=== PATIENT | male | born 1995 | race African-American/Black ===

== ENCOUNTER 2019-11-07 18:04 | Emergency (ER) | payer SELFPAY ==
[~2019-11-07] VITALS: Ht 175.3 cm; Wt 77.1 kg
--- OUTSIDE RECORDS SUMMARY | 2019-11-07 20:21 | XMS REPORT | Clinical Summary ---
Author Author ARMANDO [facility] Address Unknown Phone Unavailable Care Team Providers Care Butcher Name Role Phone Pcp, No PCP Unavailable Allergies Comments Active Allergy Reactions Severity Noted Date Penicillins Swelling 05/21/2019 Medications End Date Status Medication Sig Dispensed Refills Start Date 06/08/2019 Discontinued gemifloxacin (FACTIVE) Take 1 tablet 10 tablet 0 0 320 mg tablet (320 mg 0 total) by mouth daily for 10 days. 06/15/2019 sulfamethoxazole-trimetho Take 1 tablet 14 tablet 0 prim (BACTRIM DS) 800-160 (160 mg of 0 mg per tablet trimethoprim total) by mouth 2 (two) times daily for 7 days smx-tmp DS (BACTRIM) 800-160 mg tabs (1tab q12 D10). 06/09/2019 gemifloxacin (FACTIVE) Take 1 tablet 1 tablet 0 0 320 mg tablet (320 mg 0 total) by mouth daily for 1 day. Active Problems Not on file Encounters Care Team Description Date Type Specialty Prakash, Will III, DO Urethritis (Primary Dx); Dysuria; Penile discharge; Possible exposure to STD 10/29/2019 Emergency Emergency Medicine 10/29/2019 Travel Dot Springer MD Dysuria (Primary Dx); Penile discharge; History of UTI; Urinary frequency 06/07/2019 Emergency Emergency Medicine - 06/08/2019 06/07/2019 Travel Devon Kapoor MD Forearm laceration, left, subsequent enc ounter (Primary Dx) 06/02/2019 Emergency Emergency Medicine 06/02/2019 Travel Prakash, Will III, DO Laceration of left forearm, initial enco unter (Primary Dx); Arm pain, left 05/21/2019 Emergency Emergency Medicine - 05/22/2019 05/21/2019 Travel after 11/06/2018 Social History Date Tobacco Use Types Packs/Day Years Used Never Smoker Smokeless Tobacco: Never Used Alcohol Use Drinks/Week oz/Week Comments No Alcohol Habits Answer Date Recorded How often do you have a drink containing alcohol? Never 05/21/2019 How many drinks containing alcohol do you have on No t asked a typical day when you are drinking? How often do you have six or more drinks on one Not asked occasion? Sex Assigned at Date Recorded Not on file Industry Job Start Date Occupation Not on file Not on file Not on file Travel End Travel History Travel Start 06/07/2019 [facility] 05/07/2019 Last Filed Vital Signs Time Taken Vital Sign Reading 10/29/2019 10:58 PM CDT Blood Pressure 140/62 10/29/2019 10:58 PM CDT Pulse 82 10/29/2019 10:58 PM CDT Temperature 36.7 C (98 F) 10/29/2019 10:58 PM CDT Respiratory Rate 18 10/29/2019 10:58 PM CDT Oxygen Saturation 96% - Inhaled Oxygen - Concentration 06/07/2019 11:25 PM CDT Weight 79.4 kg (175 lb) 06/07/2019 11:25 PM CDT Height 175.3 cm (5' 9") 06/07/2019 11:25 PM CDT Body Mass Index 25.84 Plan of Treatment Not on file Procedures Comments Procedure Name Priority Date/Time Associated Diag nosis STD PANEL - CT/GC RNA STAT 10/29/2019 11:10 PM CDT STD PANEL - CT/GC RNA STAT 06/07/2019 11:48 PM CDT URINALYSIS W/ REFLEX STAT 06/07/2019 URINE CULTURE 11:47 PM CDT URINE CULTURE STAT 06/07/2019 11:47 PM CDT DC LAYR CLOS WND Routine 05/22/2019 TRUNK,ARM,LEG 2.6-7.5 CM 12:35 AM CDT after 11/06/2018 Results * STD Panel - CT/GC RNA (10/29/2019 11:10 PM CDT) Only the most recent of 2 results within the time period is included. C. trachomatis RNA, TMA DETECTED (A) [employer] Comment: INCORPORATED If results do not correlate with clinical findings, testing using an alternate molecular target which amplifies different genetic sequences can be performed on the same sample for result confirmation when requested within 7 days of sample receipt or per performing laboratory specimen retention policy. Alternate target testing is available; 55202 (C. trachomatis) [place] [address]578 (N. gonorrhoeae). N. gonorrhoeae RNA, TMA DETECTED (A) [facility] [employer] [facility] Comment: INCORPORATED If results do not correlate with clinical findings, testing using an alternate molecular target which amplifies different genetic sequences can be performed on the same sample for result confirmation when requested within 7 days of sample receipt or per performing laboratory specimen retention policy. Alternate target testing is available; 98469 (C. trachomatis) [place] [address]291 (N. gonorrhoeae). REFERENCE RANGE:NOT DETECTED Methodology: Gi Physician Mediated Amplification (TMA) to detect RNA. The analytical performance characteristics of this assay, when used to test SurePath(TM) specimens have been determined by [facility]. The modifications have not been cleared or approved by the FDA. This assay has been validated pursuant to the CLIA regulations and is used for clinical purposes. For additional information, please refer to https://education.The Smart Baker/faq/LNE738 (This link is being provided for informational/ educational purposes only.) Specimen Urine Narrative Performed At Performing Lab [facility] *[facility] [address] [place] [address] Josh Babin MD Performing Organization Address City/State/Zipcode Ph one Number [facility], [address] [place], [place] INCORPORATED On License Of [facility] [address] * Urinalysis w/Microscopic + Reflex to Culture (06/07/2019 11:47 PM CDT) Color, UA Yellow [facility], [facility] Clarity, UA Clear [facility], [facility] Specific [place], UA 1.020 1.001 - 1.035 [facility] pH, UA 6.5 5.0 - 8.0 [facility] Protein, UA Trace (A) Negative [facility] Glucose, UA Negative Negative [facility], [facility] Ketones, UA Trace (A) Negative [facility], [facility], [facility] Bilirubin, UA Negative Negative [facility], [facility], [facility] Blood, UA Negative Negative [facility], [facility] Nitrite, UA Negative Negative [facility], [facility] Leukocytes, UA Moderate (A) Negative [facility] Urobilinogen, UA 2.0 (H) 0.2 - 1.0 mg/dL [facility], [facility], [facility] Bacteria, UA Few [facility] Mucus Few [facility], [facility] RBC, UA <5 /HPF [facility] WBC, UA 20-50 /HPF [facility] SQUAMOUS EPITHELIAL <5 /HPF [facility], [facility] Specimen Source [facility], [facility], [facility] Specimen Urine Performing Organization Address City/State/Zipcode Ph one Number [facility] [address] [place] [address] [phone] [facility] * Urine culture (06/07/2019 11:47 PM CDT) Result See comment [facility] Specimen Urine Narrative Performed At 30-39,000 col/mL skin jonathan [facility] Performing Organization Address City/State/Zipcode Ph one Number [facility] [address] [place], [place] [address] [facility] * Lac Repair (05/22/2019 12:35 AM CDT) Narrative Performed At Deno Randall III, DO 05/22/2019 7:06 AM Lac Repair Date/Time: 05/22/2019 6:56 AM Performed by: Deon Randall III, DO Authorized by: Deon Randall III, DO Consent: Verbal consent obtained. Risks and benefits: risks, benefits and alternatives were discussed Site marked: the operative site was vera boo Patient identity confirmed: verbally wi th patient and arm band Time out: Immediately prior to procedur e a "time out" was called to verify the correct patient, procedure, equipme nt, sales support administrator and site/side marked as required. Body area: upper extremity Location details: left lower arm Laceration length: 4 cm Foreign bodies: no foreign bodies Tendon involvement: none Nerve involvement: none Vascular damage: no Anesthesia: local infiltration Anesthesia: Local Anesthetic: bupivacaine 0.25% wit hout epinephrine Anesthetic total: 7 mL Sedation: Patient sedated: no Preparation: Patient was prepped and dr humaed in the usual sterile fashion. Irrigation solution: saline Irrigation method: jet lavage Amount of cleaning: extensive Skin closure: 5-0 Prolene Technique: simple Approximation: close Approximation difficulty: simple Dressinx4 sterile gauze and antibio tic ointment Patient tolerance: Patient tolerated th e procedure well with no immediate complications Immediate Post-Procedure Note Date/Time: 05/22/2019 6:59 AM Assistants to the procedure: None Pre-procedure diagnosis: left forearm l aceration Post-procedure diagnosis: left forearm laceration Procedures Performed: Lac Repair Specimens removed: None Estimated blood loss (mL): None Complications: None Type of anesthesia: None Grafts or Implants: None after 11/06/2018
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
[2019-11-07] MEDS ORDERED: CEFTRIAXONE SOD 1 GM VIAL IM ONE (20:30)
[2019-11-07] MEDS ORDERED: AZITHROMYCIN 250 MG TAB PO ONE (20:30)
--- NOTE | 2019-11-07 20:31 | Emergency Department Note ---
History of Present Illnes History of Present Illness Chief Complaint: penis pain/dysuria History of Present Illness This is a 24 year old male. was doing well prior to this. 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 Onset (how long ago): day(s) (2) Location: penis Quality: sharp Radiation: Reports back Severity: mild Onset quality: gradual Duration (how long): day(s) (2) Timing of current episode: constant Progression: worsening Chronicity: new Context: Denies recent illness, Denies recent surgery, Denies recent immobilization, Denies recent travel, Denies trauma/injury, Denies new medications, Denies hx of DVT/PE, Denies non-compliance w/ medications Relieving factors: none Exacerbating factors: none Associated symptoms: Reports denies other symptoms Treatments prior to arrival: none Past Medical/Family History Physician Review I have reviewed the patient's past medical and family history. Any updates have been documented here. Past Medical History Recent Fever: No Clinical Suspicion of Infectio: No New/Unexplained Change in Ment: No Past Medical History: None Past Surgical History: None Social History Physically hurt or threatened: No Review of Systems Review of Systems Constitutional: Reports no symptoms EENTM: Reports no symptoms Cardiovascular: Reports no symptoms Respiratory: Reports no symptoms Gastrointestinal: Reports no symptoms Genitourinary: Reports as per HPI Musculoskeletal: Reports no symptoms Integumentary: Reports no symptoms Neurological: Reports no symptoms Psychological: Reports no symptoms Endocrine: Reports no symptoms Hematological/Lymphatic: Reports no symptoms Physical Exam Related Data Allergies: Coded Allergies: Penicillins (Verified Allergy, Unknown, 11/07/19) Triage Vital Signs Vital Signs Date Time Temp Pulse Resp B/P (MAP) Pulse Ox O2 Delivery O2 Flow Rate FiO2 11/07/19 19:30 98.2 66 18 142/79 100 Room Air Vital signs reviewed: Yes Physical Exam CONSTITUTIONAL Constitutional: Present well-developed, Present well-nourished HENT HENT: Present normocephalic, Present atraumatic, Present oropharynx clear/moist, Present nose normal HENT L/R: Present left ext ear normal, Present right ext ear normal EYES Eyes: Reports PERRL, Reports conjunctivae normal NECK Neck: Present ROM normal PULMONARY Pulmonary: Present effort normal, Present breath sounds normal CARDIOVASCULAR Cardiovascular: Present regular rhythm, Present heart sounds normal, Present capillary refill normal, Present normal rate GASTROINTESTINAL Abdominal: Present soft, Present nontender, Present bowel sounds normal GENITOURINARY Genitourinary: Present penis normal SKIN Skin: Present warm, Present dry MUSCULOSKELETAL Musculoskeletal: Present ROM normal NEUROLOGICAL Neurological: Present alert, Present oriented x 3, Present no gross motor or sensory deficits PSYCHOLOGICAL Psychological: Present mood/affect normal, Present judgement normal Results Imaging Imaging results reviewed: Yes Impressions ua=normal, gc/chlamydia pending Assessment & Plan Medical Decision Making MDM see below Assessment & Plan Final Impression: (1) Dysuria (2) Concern about STD in male without diagnosis Depart Disposition: HOME, SELF-CARE Last Vital Signs Date Time Temp Pulse Resp B/P (MAP) Pulse Ox O2 Delivery O2 Flow Rate FiO2 11/07/19 19:30 98.2 66 18 142/79 100 Room Air HIMANSHU ADAME Nov 07, 2019 20:31
[2019-11-07] MEDS ORDERED: AZITHROMYCIN 250 MG TAB ONE (20:38)
== END 2019-11-07 21:05 | disposition home or self-care (01) ==
LOC: FSED 19:50
DX: R30.0 Dysuria (principal); F17.210 Nicotine dependence, cigarettes, uncomplicated
CPT/HCPCS: 81003; 99282; J0696